=== PATIENT | female | born 1970 | race Caucasian/White ===

== ENCOUNTER 2017-03-02 23:00 | Emergency (ER) | payer BC ==
[~2017-03-02] VITALS: Ht 154.9 cm; Wt 61.7 kg
[2017-03-02 23:11] VITALS: BP 128/95
--- NOTE | 2017-03-03 01:26 | NUR ---
PT TAKEN TO [facility] FROM [facility]
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
--- NOTE | 2017-03-03 02:12 | NUR ---
PT TAKEN TO BED 7
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
--- NOTE | 2017-03-03 02:21 | NUR ---
Dr. Collado evaluating patient at bedside.
[2017-03-03] MEDS ORDERED: NAPROXEN 500 MG TAB PO ONE (02:30)
[2017-03-03] MEDS ORDERED: IBUPROFEN 800 MG TAB PO ONE (02:45)
[2017-03-03] MEDS ORDERED: IBUPROFEN 800 MG TAB ONE (02:52)
[2017-03-03 03:23] VITALS: BP 128/95
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
== END 2017-03-03 03:26 | disposition home or self-care (01) ==
LOC: MED 23:00
DX: S46.911A Strain of unspecified muscle, fascia and tendon at shoulder and upper arm level, right arm, initial encounter (principal); S53.401A Unspecified sprain of right elbow, initial encounter; S63.501A Unspecified sprain of right wrist, initial encounter; S16.1XXA Strain of muscle, fascia and tendon at neck level, initial encounter; S83.92XA Sprain of unspecified site of left knee, initial encounter; R03.0 Elevated blood-pressure reading, without diagnosis of hypertension; Z88.0 Allergy status to penicillin; V89.2XXA Person injured in unspecified motor-vehicle accident, traffic, initial encounter; Y93.89 Activity, other specified; Y92.89 Other specified places as the place of occurrence of the external cause; Y99.8 Other external cause status
CPT/HCPCS: 72040; 73030; 73080; 73110; 73562; 99284